=== PATIENT | male | born 1975 | race Caucasian/White ===

== ENCOUNTER 2016-06-26 01:36 | Observation (INO) | payer MEDICAID, OTHER ==
[2016-06-26] VITALS (7 sets, daily range): BP systolic 125–169; BP diastolic 77–99; PULSE 68–92; RESP 16–18; TEMP 97.5–98.2; O2SAT 95–98
[~2016-06-26] VITALS: Ht 170.2 cm; Wt 80.0 kg
--- NOTE | 2016-06-26 01:55 | PD ---
HPI Chief Complaint: Oral / Dental Pain or Problem Time Seen by Provider: 01:45 Travel History International Travel<30 days: No Contact w/Intl Traveler<30days: No Traveled to known affect area: No History of Present Illness HPI The patient is a 40 year old male who presents to the [facility] emergency department with a history of dental pain that began on of this past week approximately 4-5 days ago. The patient reports that he has had problems with his teeth in the past. He last saw a dentist approximately 15 years ago. He reports the pain is in the left lower jaw and one of the posterior teeth. He reports that he's had increasing difficulty opening his mouth since the onset of the pain. The patient went to [facility] for evaluation and was noted to have trismus. The patient was noted on CT scan of the maxillofacial area to have a periapical abscess with surrounding myositis. The patient was accepted in transfer to this facility by the maxillofacial surgeon, Dr. Sutton, and the hospitalist, Dr. Garcia. The patient reports that he did have a low- grade fever earlier today. He denies having any vomiting or diarrhea. He reports that he feels like he lost weight over the last week as he has not been able to eat well due to the pain and difficulty opening his mouth. The patient denies any recent cough, congestion, neck pain, chest pain, shortness of breath , abdominal pain, vomiting, diarrhea, urinary symptoms, or neurologic symptoms. [facility] Past Medical History Narrative Medical The patient's past medical history is significant for having kidney stones. Kidney Stones: Yes Tetanus Vaccination: Unknown Influenza Vaccination: No Past Surgical History Narrative Surgical The patient's past surgical history is significant for a lithotripsy. Valve Replacement: Yes (LITHOTRIPSY) Social History Alcohol Use: No Tobacco Use: Yes (1 PPD) Substance Use: Yes (marijuana occasionally) Allergies-Medications (Allergen,Severity, Reaction): Coded Allergies: No Known Allergies (Unverified , 06/26/16) Reported Meds & Prescriptions Reported Meds & Active Scripts Active No Active Prescriptions or Reported Medications Review of Systems General / Constitutional: Positive: Fever Eyes: No: Visual changes HENT: Positive: Dental Difficulties, No: Headaches Cardiovascular: No: Chest Pain or Discomfort Respiratory: No: Shortness of Breath Gastrointestinal: No: Abdominal Pain Genitourinary: No: Dysuria Musculoskeletal: No: Pain Skin: No Rash Neurologic: No: Weakness Psychiatric: No: Depression Endocrine: No: Polydipsia Hematologic/Lymphatic: No: Easy Bruising Physical Exam Narrative General: The patient is a well-developed well-nourished male in no acute distress. Head and Neck exam: Head is normocephalic atraumatic. Eyes: Pupils are equal round and reactive to light. Nose: Midline septum with pink mucous membranes Mouth: The patient is only able to open his mouth approximately 1-1/2 cm. The patient's dentition in the area of interest along the left side of his mouth on the lower jaw there is noted to have some areas of decay. The patient has surrounding gingival erythema, however no significant edema or aamir abscess formation. Moist mucus membranes. Posterior oropharynx is not erythematous. No tonsillar hypertrophy. Uvula midline. Airway patent. The patient has tenderness on palpation along the left side of the mandible. Neck: No palpable lymphadenopathy. No nuchal rigidity. No thyromegaly. Cardiovascular: Regular rate and rhythm without murmurs, gallops, or rubs. Lungs: Clear to auscultation bilaterally. No wheezes, rhonchi, or rales. Abdomen: Soft, without tenderness to palpation in all 4 quadrants of the abdomen. No guarding, rebound, or rigidity. Normal bowel sounds are audible. Extremities: No clubbing, cyanosis, or edema. Back: No spinous process tenderness to palpation. No costovertebral angle tenderness to palpation. Neurologic Exam: Grossly nonfocal. Skin Exam: No rash noted. Intact skin that is warm and dry. Data Data Last Documented VS Vital Signs Date Time Temp Pulse Resp B/P Pulse Ox O2 Delivery O2 Flow Rate FiO2 06/26/16 01:39 97.9 92 16 169/99 98 Orders Sodium Chlor 0.9% 1000 Ml Inj (Ns 1000 M (06/26/16 02:00) Place In Observation (06/26/16 ) Vital Signs (Adult) Q4H (06/26/16 02:21) Activity Oob Ad Julee (06/26/16 02:21) Diet Npo (06/26/16 Breakfast) Sodium Chlor 0.9% 1000 Ml Inj (Ns 1000 M (06/26/16 02:21) Sodium Chloride 0.9% Flush (Ns Flush) (06/26/16 02:30) Sodium Chloride 0.9% Flush (Ns Flush) (06/26/16 09:00) Scd Bilateral/Knee High JIN.BID (06/26/16 02:21) Naloxone Inj (Narcan Inj) (06/26/16 02:30) Clindamycin Inj (Cleocin Inj) (06/26/16 03:00) Dexamethasone Inj (Decadron Inj) (06/26/16 06:00) Pantoprazole Inj (Protonix Inj) (06/26/16 02:30) Consult Ent (06/26/16 ) Morphine Inj (Morphine Inj) (06/26/16 02:30) Admit Order (Ed Use Only) (06/26/16 02:30) Consult Oral, Facial Surgery (06/26/16 ) MDM Medical Decision Making Medical Screen Exam Complete: Yes Emergency Medical Condition: Yes Medical Record Reviewed: Yes Differential Diagnosis Dentalgia, versus dental abscess, versus myositis Narrative Course During the course of the patients emergency department visit, the patients history, examination, and differential diagnosis were reviewed with the patient. The patient had IV access obtained and blood work sent from the [facility]. The patient's laboratory studies and imaging studies were reviewed. According to their records the patient was given clindamycin 900 mg IV, Decadron, morphine and Zofran for pain. The patient had a white count at that facility of 11, hemoglobin 14.6, platelets 232 with a neutrophil count of 72.2, basic metabolic profile showed a sodium of 139, potassium 4.3, chloride 102, CO2 25, BUN 14, creatinine 0.98, glucose 103. The patient's CT scan of the maxillofacial area revealed left medial pterygoid muscle that is enlarged and hypoattenuating like reflecting myositis. The source is likely a periapical abscess involving the left lower third molar where there is a large periapical lucency which is dehisced sent along the lingual surface of the mandible. No definite ring enhancing fluid collection suggesting intramuscular subperiostial abscess in this location. A call has been placed out to the hospitalist accepted the patient in transfer. The patients results were discussed with the patient, including the plan of care. I explained that further testing and/ or monitoring is indicated based on the patients history, examination, and/ or laboratory findings. Therefore, I recommended admission for additional evaluation. The patient expressed understanding and was agreeable with this plan. The patient was admitted to the hospital in stable condition and sent to a bed under the care of the [facility] with a consultation to the maxillofacial surgeon, Dr. Sutton. Physician Communication Physician Communication The patient's case was discussed with Dr. Garcia who did agree to admit the patient for further evaluation and treatment at this time. Diagnosis Primary Impression: Periapical abscess with facial involvement Additional Impression: Myositis Qualified Code: M60.009 - Infective myositis, unspecified site Admitting Information Admitting Physician Requests: Admit Scripts No Active Prescriptions or Reported Meds Carolyn Chaparro MD Jun 26, 2016 01:55
[2016-06-26] MEDS ORDERED: SODIUM CHLOR 0.9% 1000 ML INJ 1,000 ML IV SCH ×2 (02:00→02:21)
[2016-06-26] MEDS ORDERED: NALOXONE HCL 0.4 MG/ML AMP IV PRN ×2 (02:30→08:45)
[2016-06-26] MEDS ORDERED: SODIUM CHLORIDE 0.9% FLUSH 5 ML FLUSH FLUSH PRN ×2 (02:30→08:45)
[2016-06-26] MEDS ORDERED: MORPHINE SULFATE 4 MG/ML INJ IV PUSH PRN (02:30)
[2016-06-26] MEDS ORDERED: PANTOPRAZOLE SODIUM 40 MG VIAL IV PUSH SCH (02:30)
[2016-06-26] MEDS ORDERED: CLINDAMYCIN INJ 900 MG in SODIUM CHLORIDE 0.9% INJ 100 ML IV SCH (03:00)
[2016-06-26] MEDS ORDERED: HYDROmorphone HCL PF 1 MG/ML VIAL IV PUSH PRN (04:30)
[2016-06-26] MEDS: DEXAMETHASONE SOD PHOS 4 MG/ML VIAL IV PUSH SCH ×4 (06:43→23:21)
--- NOTE | 2016-06-26 08:36 | MB ---
cc: BRIAN SUTTON DMD DATE OF CONSULTATION June 26, 2016 REASON FOR CONSULTATION Tooth pain/limited opening. HISTORY OF PRESENT ILLNESS This is a 40-year-old male who for the last 4-5 days reports pain in the lower left wisdom tooth. He reports that it is somewhat moving. He is having difficulty completely opening his mouth. It is painful. I got a call from [facility] ER this morning. They indicated to me the patient's condition and I accepted for transfer. I have seen and examined this patient this morning. He is alert, awake and oriented x 3, in no acute distress. He denies any fever, chills, nausea or vomiting, any shortness of breath, any difficulty breathing or any difficulty swallowing. Reports when he tries to open his mouth more than what he is able to eat, he has some pain. PAST MEDICAL HISTORY Reports a history of kidney stones. MEDICATIONS Denied. ALLERGIES Denied. SOCIAL HISTORY Reports smoking cigarettes one-pack per day but tried to quit. Denies any alcohol. Occasional marijuana use. EXAMINATION Head and Neck: No gross facial edema/neck edema. No tenderness to palpation of the neck. Trachea is at midline. Intraorally, he has limited opening. I am unable to put a tongue depressor on the site which is approximately 18 mm. There is no elevation of floor of the mouth or the tongue. There is no deviation of the uvula. No gross intraoral edema that is noted. Tooth #17 I could see posteriorly; it is angled posterior left mandible mesioangular but he has got some mobility on that. He also has a broken area of molar that is anterior to that, although it is covered with the gums. The patient believes the tooth was broken off. The roots is still there. Vital Signs: Temperature is 98.2, pulse is 88, respiration rate 16, blood pressure 130/86 with oxygen saturation of 96%. LABS FROM [facility] White count of 11, H&H of 14.6, platelets of 232. ASSESSMENT AND PLAN This is a 40-year-old male with a longstanding history of not seeing a dentist. He now presents to the ER with limited opening secondary to pain. Tooth #17 is mobile. There is discomfort to palpation of tooth #17. Also there appears to be broken tooth anterior to that. Unable to open up the CT scan of the facial bones from [facility]. I will take the disc to my office to evaluate that. If I am not able to, get a repeat CT scan. We can also at this point plan to continue the antibiotics, steroids. We will also consider having the patient admitted overnight and discharge the patient tomorrow for extraction of the tooth. ADDENDUM I have reviewed the CT scan here at the hospital, we are able to find a computer that opens it up. It shows generalized periodontally involved periapical lucency that is noted. Especially on the left side the tooth number 17 with periapical lucency with a little cracked on the bone on the lingual of the 17th side. Clinically also it did note that the patient also has generally periodontally teeth mobility especially the one in the lower anterior. So at this point we will plan IV antibiotics, steroids and then we will have the patient discharged to the office tomorrow for extraction of tooth number 17 or any other teeth at that region. Did professor of counseling the patient on the importance of following with a dentist/mba intern. He has got generalized gingival chroni periodontitis, decayed teeth, poor dentition. Brian Sutton, SHARONDA SPOUTING INSTALLER/SSB /7:52 AM /10:11 AM TG
[2016-06-26] MEDS: SODIUM CHLORIDE 0.9% FLUSH 5 ML FLUSH FLUSH SCH ×2 (08:44→19:27)
[2016-06-26] MEDS ORDERED: ZOLPIDEM TARTRATE 5 MG TAB PO PRN (08:45)
[2016-06-26] MEDS ORDERED: ACETAMINOPHEN 325 MG TAB PO PRN ×2 (08:45)
[2016-06-26] MEDS ORDERED: ACETAMINOPHEN/HYDROcodone 325 MG/7.5 MG TAB PO PRN (08:45)
[2016-06-26] MEDS ORDERED: MAGNESIUM HYDROXIDE SUSP 30 ML CUP PO PRN (08:45)
[2016-06-26] MEDS ORDERED: ONDANSETRON HCL 4 MG/2 ML VIAL IVP PRN (08:45)
[2016-06-26] MEDS ORDERED: ACETAMINOPHEN/HYDROcodone 325 MG/5 MG TAB PO PRN (08:45)
--- NOTE | 2016-06-26 08:51 | HHI.HP ---
[facility] Shelby Whitehead MD Admission Diagnosis Periapical abscess, myositis Diagnoses: (1) Periapical abscess with facial involvement Diagnosis: Principal (2) Periodontitis Diagnosis: Principal Chief Complaint: jaw and teeth pain Travel History International Travel<30 Days: No Contact w/Intl Traveler <30 Da: No Traveled to Known Affected Are: No History of Present Illness 40-year-old white male with a past medical history was transferred from [facility] emergency room upon acceptance from the oral facial maxillary surgeon Dr. Sutton due to possible per periapical abscess for surgical evaluation. Patient states that 6 days ago as she he was chewing Doritos chips , he developed significant left lower jaw pain. Over the past 24-48 hours he's also developed low-grade fevers. He states that he has had poor dental care due to no payor source for dentist visits and stated that he lost some premolar tooth in the left lower area due to his wisdom tooth. He reports that he is still able to swallow soft solids foods. He does have limited efforts and opening his jaw due to pain. He denies any drooling. He has not had any chills or any other trauma to the area. Review of Systems Constitutional: COMPLAINS OF: Fever, DENIES: Fatigue, Chills, Change in appetite Endocrine: DENIES: Heat/cold intolerance Eyes: DENIES: Blurred vision, Eye pain, Vision loss Ears, nose, mouth, throat: COMPLAINS OF: Toothache, DENIES: Hearing loss, Nasal discharge, Throat pain, Ear Pain, Sinus Pain Respiratory: DENIES: Cough, Shortness of breath Cardiovascular: DENIES: Chest pain, Palpitations, Dyspnea on Exertion, Lower Extremity Edema Gastrointestinal: DENIES: Abdominal pain, Black stools, Bloody stools, Constipation, Diarrhea, Nausea, Vomiting Musculoskeletal: DENIES: Joint pain, Muscle aches, Stiffness Integumentary: DENIES: Rash Hematologic/lymphatic: DENIES: Bruising, Lymphadenopathy Immunologic/allergic: DENIES: Eczema Neurologic: DENIES: Headache, Localized weakness, Paresthesias Psychiatric: DENIES: Anxiety, Depression, Suicidal Ideation Past Family Social History Past Medical History Kidney stones Past Surgical History Lithotripsy Reported Medications None Allergies: Coded Allergies: No Known Allergies (Unverified , 06/26/16) Family History Father had [facility] previously at 57 Mother had uterine cancer Social History Uses marijuana occasionally, smokes 1 pack of cigarettes daily. Does not drink alcohol Physical Exam Vital Signs Vital Signs Date Time Temp Pulse Resp B/P Pulse Ox O2 Delivery O2 Flow Rate FiO2 06/26/16 07:27 98.2 88 16 138/86 96 06/26/16 07:23 16 06/26/16 04:30 88 18 150/90 97 Room Air 06/26/16 01:39 97.9 92 16 169/99 98 Physical Exam GENERAL: This is a well-nourished, well-developed patient, in no apparent distress. SKIN: No rashes, ecchymoses or lesions. Cool and dry. HEAD: Atraumatic. Normocephalic. No temporal or scalp tenderness. EYES: Pupils equal round and reactive. Extraocular motions intact. No scleral icterus. No injection or drainage. ENT: Nose without bleeding, purulent drainage or septal hematoma. Throat without erythema, tonsillar hypertrophy or exudate. Uvula midline. Airway patent. Patient was able to open his jaw with visualization of left lower absence of premolars. There was redness and swelling over the left lower gumline. No significant drainage seen. Pain upon left lower gumline with stimuli. NECK: Trachea midline. No JVD or lymphadenopathy. Supple, nontender, no meningeal signs. CARDIOVASCULAR: Regular rate and rhythm without murmurs, gallops, or rubs. RESPIRATORY: Clear to auscultation. Breath sounds equal bilaterally. No wheezes , rales, or rhonchi. GASTROINTESTINAL: Abdomen soft, non-tender, nondistended. Normoactive bowel sounds MUSCULOSKELETAL: Extremities without clubbing, cyanosis, or edema. No joint tenderness, effusion, or edema noted. No calf tenderness. Negative Homans sign bilaterally. NEUROLOGICAL: Awake and alert to person place time and situation. Cranial nerves II through XII intact. Motor and sensory grossly within normal limits. Five out of 5 muscle strength in all muscle groups. Normal speech. Laboratory WBC11,000, hemoglobin 14.6, Imaging CT performed at [facility] revealed left medial pterygoid muscle is enlarged and hypoattenuating likely reflecting myositis. The source is likely. Apical abscess involving the left lower third molar where there is a large. Apical lucency which is dehiscent along the lingual surface of the mandible. No definite rim enhancing fluid collection suggest intramuscular or subcutaneous per stay all abscess in this location. However evaluation is limited in this location CN II quantum multiple and streak artifact. Inflammatory changes involving the adjacent left mandible and parapharyngeal spaces. Findings consistent with apical periodontitis involving multiple upper and lower teeth with associated reactive osteitis involving adjacent maxilla and mandible. Assessment and Plan Problem List: (1) Periapical abscess with facial involvement ICD Code: K04.7 Status: Acute (2) Periodontitis ICD Code: K05.30 Status: Acute Assessment and Plan 1. Periapical abscess with periodontitis- patient was seen and evaluated by orofacial maxillary surgeon Dr. Sutton who recommended continue conservative treatment with IV fluid hydration, IV antibiotics and steroids Decadron. If symptoms does clinically improve, he should be discharged home on oral antibiotics with outpatient follow-up for further surgical evaluation such as with some tooth removal with him in his office. We'll continue to monitor patient clinically. Restart diet and monitor intake. 2. DVT prophylaxisNo mechanical or pharmaceutical VTE prophalaxis administered due to patient's low risk assessment of VTE. Encouraged ambulation. Tosin Isidro MD Jun 26, 2016 08:51
[2016-06-26] MEDS ORDERED: SODIUM CHLORIDE 0.9% FLUSH 5 ML FLUSH FLUSH SCH (09:00)
[2016-06-26] MEDS: AMPICILLIN-SULBACTAM INJ 3 GM in SODIUM CHLORIDE 0.9% INJ 100 ML IV SCH ×3 (10:03→19:27)
--- NOTE | 2016-06-26 17:18 | HHI.PR ---
Subjective Remarks pt seen and examined this evening AAOx3 NAD, ate cheeseburger today, coffee this evening denies f/c/n/v/sob/difficulty swallowing. tolerating po well reports feeling better Objective Vital Signs Date Time Temp Pulse Resp B/P Pulse Ox O2 Delivery O2 Flow Rate FiO2 06/26/16 16:45 97.8 81 17 130/77 98 Room Air 06/26/16 13:46 97.8 81 17 135/80 98 06/26/16 13:00 17 06/26/16 11:59 68 18 125/82 95 Room Air 06/26/16 07:27 98.2 88 16 138/86 96 06/26/16 07:23 16 06/26/16 04:30 88 18 150/90 97 Room Air 06/26/16 01:39 97.9 92 16 169/99 98 Objective Remarks no neck edema trach midline dmitriy opening increased, but not full mouth opening no elevation fom or tongue #17 mobility,, possible remaining roots molar left mandible no intraoral/facial edema Assessment and Plan Assessment and Plan s/p having tooth pain left post wisdom teeth #17, possible retained root left post kirill molar improvement since this am will reeval tomorrow am if better - plan to d/c to my office to tooth extraction if not better to main OR tomorrow pm d/w pt adn Omar Balderrama DMD Jun 26, 2016 17:18
[2016-06-27 00:06] VITALS: BP 152/82; PULSE 74; RESP 20; TEMP 98.1; O2SAT 96
[2016-06-27] MEDS: AMPICILLIN-SULBACTAM INJ 3 GM in SODIUM CHLORIDE 0.9% INJ 100 ML IV SCH ×4 (03:44→21:00)
[2016-06-27 04:31] VITALS: BP 113/60; PULSE 77; RESP 20; TEMP 97.6; O2SAT 95
[2016-06-27] MEDS: DEXAMETHASONE SOD PHOS 4 MG/ML VIAL IV PUSH SCH ×3 (05:32→18:00)
--- NOTE | 2016-06-27 07:32 | HHI.PR ---
Subjective Remarks pt seen and examined this morning AAOx3 NAD, reports discharge fluid come out in mouth when he pushed on side of mouth denies f/c/n/v/sob/difficulty swallowing. tolerating po well reports feeling better Objective Vital Signs Date Time Temp Pulse Resp B/P Pulse Ox O2 Delivery O2 Flow Rate FiO2 06/27/16 04:31 97.6 77 20 113/60 95 06/27/16 00:06 98.1 74 20 152/82 96 06/26/16 18:22 97.5 68 16 147/88 97 06/26/16 16:45 97.8 81 17 130/77 98 Room Air 06/26/16 13:46 97.8 81 17 135/80 98 06/26/16 13:00 17 06/26/16 11:59 68 18 125/82 95 Room Air Objective Remarks no neck edema trach midline mouth opening increased, but not full mouth opening no elevation fom or tongue #17 mobility,, possible remaining roots molar left mandible no intraoral/facial edema no discharge noted now Assessment and Plan Assessment and Plan s/p having tooth pain left post wisdom teeth #17, possible retained root left post kirill molar unable to come to office today for tooth extraction I&D due to not being able to get a ride to main OR this evening for I&D and ext tooth #17 benefits/risks reviewed, all questions/concerns answered keep NPO Omar Sutton DMD Jun 27, 2016 07:32
[2016-06-27 07:44] VITALS: BP 129/83; PULSE 78; RESP 14; TEMP 96.1; O2SAT 98
[2016-06-27] MEDS: SODIUM CHLORIDE 0.9% FLUSH 5 ML FLUSH FLUSH SCH ×2 (08:01→19:46)
--- NOTE | 2016-06-27 09:40 | HHI.PR ---
Subjective Remarks Still with pain and facial swelling but better overnight. Wants to proceed with surgery. No other complaints at this time. Objective Vitals Vital Signs Date Time Temp Pulse Resp B/P Pulse Ox O2 Delivery O2 Flow Rate FiO2 06/27/16 07:44 96.1 78 14 129/83 98 06/27/16 04:31 97.6 77 20 113/60 95 06/27/16 00:06 98.1 74 20 152/82 96 06/26/16 18:22 97.5 68 16 147/88 97 06/26/16 16:45 97.8 81 17 130/77 98 Room Air 06/26/16 13:46 97.8 81 17 135/80 98 06/26/16 13:00 17 06/26/16 11:59 68 18 125/82 95 Room Air Objective Remarks GENERAL: This is a well-nourished, well-developed patient, in no apparent distress. HEENT: Mild Left jaw facial swelling CARDIOVASCULAR: Regular rate and rhythm RESPIRATORY: Clear to auscultation. Breath sounds equal bilaterally. No wheezes , rales, or rhonchi. GASTROINTESTINAL: Abdomen soft, non-tender, nondistended. Normal active bowel sounds MUSCULOSKELETAL: Extremities without clubbing, cyanosis, or edema. NEURO: Alert & Oriented x4 to person, place, time, situation. Moves all ext x4 A/P Problem List: (1) Periapical abscess with facial involvement ICD Code: K04.7 Status: Acute (2) Periodontitis ICD Code: K05.30 Status: Acute Assessment and Plan 1. Periapical abscess with periodontitis, continue with IV fluid hydration, IV antibiotics and steroids Dr. Herman Spring will take the patient to the OR at 5 PM today for I&D and extraction of tooth #17 keep patient nothing by mouth today. Complete course of antibiotics upon discharge to home and follow-up with orofacial maxillary surgery. 2. DVT prophylaxisSCDs while in bed. Discharge Planning Discharge patient to home after surgery Condition on discharge: Improved Soft diet as tolerated Ad Julee activity Rx written: Augmentin 875 mg by mouth twice a day, defer pain medication prescription to orofacial maxillary surgeon Follow-up with primary care physician Tosin Isidro MD Jun 27, 2016 09:40
--- NOTE | 2016-06-27 09:41 | HHI.DCPOC ---
Discharge Care Plan Diagnosis: (1) Periapical abscess with facial involvement (2) Periodontitis Your Health Problems Are: Inflammation Goals to Promote Your Health * To prevent worsening of your condition and complications * To maintain your health at the optimal level Directions to Meet Your Goals Take your medications as prescribed Follow your dietary instruction Follow activity as directed Follow-up with orofacial maxillary surgery Keep your appointments as scheduled Take your immunizations and boosters as scheduled If your symptoms worsen call your PCP, if no PCP go to Urgent Care Center or Emergency Room Smoking is Dangerous to Your Health. Avoid second hand smoke Call the 24-hour hour crisis hotline for domestic abuse at Tosin Isidro MD Jun 27, 2016 09:41
[2016-06-27] MEDS ORDERED: AUGM875T PO (09:45)
[2016-06-27] MEDS: LACTATED RINGER'S 1000 ML INJ 1,000 ML IV SCH ×2 (09:49→20:00)
[2016-06-27 11:41] VITALS: BP 140/85; PULSE 85; RESP 18; TEMP 96.5; O2SAT 96
[2016-06-27] MEDS ORDERED: PROPOFOL 200 MG/20 ML AMP IV ONE (12:00)
[2016-06-27 15:54] VITALS: BP 146/88; PULSE 87; RESP 18; TEMP 97.9; O2SAT 98
[2016-06-27] MEDS ORDERED: CHLORHEXIDINE GLUCONATE 0.12% 30 ML CUP ONE (17:52)
[2016-06-27] MEDS ORDERED: LIDOCAINE 2%/EPINEPHrine 1:100,000 30ML MDV ONE (17:53)
[2016-06-27] MEDS ORDERED: MICROFIBRILLAR COLLAGEN HEMOSTAT 1 GM PKT ONE (17:53)
[2016-06-27] MEDS ORDERED: BUPIVACAINE/EPINEPHRINE 0.5% PF 30 ML VIAL ONE (17:53)
--- NOTE | 2016-06-27 19:16 | HHI.PR ---
Immediate Post Op Note Procedure Date: Jun 27, 2016 Pre Op Diagnosis: decayed/periodontally tooth #17 left post mandible abscess/infection secondary to tooth #17 Post Op Diagnosis: same as above Surgeon: Omar Sutton Phlebotomy Supervisor(s): cortney stevenson Procedure: exam under anesthesia extraction of tooth #17 I&D left Post mandible Findings: pus 17 site Complications: none Specimen(s) removed: pus - sent for culture Estimated blood loss: minimal Anesthesia: General, Local (2%lidocaine with 1:100,000 epi 4 cc .05% marcaine with 1:200,000 epi approx 3 cc) Drains: [place] (1/4 inch ebony drain left post mandible) Patient to: PACU Patient Condition: Good Date/Time of Procedure: SEE SURGICAL CARE RECORD Omar Sutton DMD Jun 27, 2016 19:16
[2016-06-27] MEDS ORDERED: MIDAZOLAM HCL 2 MG/2 ML VIAL ONE (19:17)
[2016-06-27] MEDS ORDERED: methylPREDNISolone SOD SUCC 125 MG/2 ML VIAL ONE (19:21)
[2016-06-27] MEDS ORDERED: *MEPERIDINE 25 MG INJ VIAL PERIprocedural Use ONLY ONE (19:22)
[2016-06-27] MEDS: methylPREDNISolone SOD SUCC 125 MG/2 ML VIAL IV SCH (19:30)
[2016-06-27] MEDS ORDERED: *morphine SULFATE 8 MG/ML PERIprocedure ONLY ONE ×2 (19:36→19:48)
[2016-06-27] MEDS ORDERED: *HYDROmorphone PF 1 MG VIAL PERIprocedural Use ONLY ONE (20:11)
[2016-06-28] MEDS: methylPREDNISolone SOD SUCC 125 MG/2 ML VIAL IV SCH (01:30)
[2016-06-28] MEDS ORDERED: methylPREDNISolone ACETATE 80 MG/ML VIAL IM ONE (02:00)
[2016-06-28] MEDS: AMPICILLIN-SULBACTAM INJ 3 GM in SODIUM CHLORIDE 0.9% INJ 100 ML IV SCH ×2 (02:30→08:41)
[2016-06-28 08:00] VITALS: BP 144/90; PULSE 81; RESP 18; TEMP 98.9; O2SAT 97
[2016-06-28] MEDS: SODIUM CHLORIDE 0.9% FLUSH 5 ML FLUSH FLUSH SCH (08:41)
[2016-06-28] MEDS: LACTATED RINGER'S 1000 ML INJ 1,000 ML IV SCH (09:45)
[2016-06-28 11:00] VITALS: BP 150/99; PULSE 94; RESP 18; TEMP 98.1; O2SAT 94
[2016-06-28 12:00] VITALS: BP 147/102; PULSE 78; RESP 18; TEMP 98.9; O2SAT 97
--- NOTE | 2016-06-28 21:49 | MP ---
cc: MIGUELBRIAN DMD (fax copy to Dr. Sutton's office) DATE OF SURGERY 06/27/16 PREOPERATIVE DIAGNOSIS Decayed bit on involved tooth number 17, also left posterior mandible abscess/infection secondary to tooth number 17, POSTOPERATIVE DIAGNOSIS Decayed bit on involved tooth number 17, also left posterior mandible abscess/infection secondary to tooth number 17, PROCEDURE 1. Exam under anesthesia. 2. Extraction of tooth number 17. 3. Incision and drainage of posterior mandible. ANESTHESIA General also 2% lidocaine with 1:100,000 epinephrine approximately 4 mL, also 0.5% Marcaine with 1:200,000 epinephrine approximately [address] Rossana Sutton. CHRONIC CONDITION NURSE Brenton Hua COMPLICATIONS None FINDINGS Pus at the #17 site. SPECIMENS Pus sent for culture. ESTIMATED BLOOD LOSS Minimal DRAINS 1/4" drain on the left posterior mandible. DISPOSITION The patient tolerated the procedure well, extubated and taken to the PACU. INDICATIONS FOR PROCEDURE This is a 40-year-old male who was been having pain on the left posterior mandible tooth number 17 and difficulty opening. This was all secondary to tooth #17 with an infection/abscess region. In order to restore proper form and function, it is necessary that patient undergo the above listed procedure. Benefits, risks indication of the procedure, procedure in detail and the options of no treatment including alternatives were discussed with this patient. Risks are not limited to any postop pain, infection, bleeding, damage to the adjacent teeth, soft tissue, hard tissue, anesthesia complications, numbness, recurrence of infection, all questions and concerns were addressed. Consent is signed in the chart. PROCEDURE IN DETAIL The patient was met perioperatively. All questions and concerns were addressed. Left side of the face was marked. Taken to operating room #8. He was put on the table in supine position. He underwent oral intubation with a glide scope. Eyes were lubed and taped shut. All pressure points were padded. At this time a time-out was taken to identify the patient, side, the procedure, the surgeon. All were in agreement. The patient was prepped with Betadine solution. I went to the sink to scrub and came back to wear the sterile attire. The patient was draped in normal sterile fashion. A bite block was put gently on the right side of the mouth. Back of throat was suctioned. Moistened Ray-Aura was used as a throat pack. 2% lidocaine with 1:100,000 epinephrine was injected left inferior nerve block and left long buccal block. Peridex mouth rinse was given in the mouth. Examination under anesthesia shows tooth #17 severely mobile consistent with the radiographic finding of a radiolucency around tooth #17. There was no elevation of floor of the mouth. There is no elevation of floor of the tongue. There is no deviation of the uvula. No palpable collection noted on the lingual aspect of the inferior border of the mandible region posteriorly. There is generalized poor dentition periodontally involved teeth. There is also periapical radiographically. I did have a discussion with this patient perioperatively the points of following up with a dentist as well as surgeon to have teeth restored or extracted. 15 plate was used to make a little incision lateral hockey stick on tooth number 17, coming straight down to the crest on the tooth number 18 region, the molars region. Periosteal elevator was used to reflect off the flap. Once this was done, tooth #17 was removed with extractor with elevation of forceps. The granulation tissue all curetted out. Extending the region of tooth #18 and 19 in that region, that whole area also had inflammatory granulation tissue that was also curetted. I did not clinically see at this point any remains of any tooth. Note that when I proceeded to extract tooth #17 on the lateral aspect a little pus came out of there. Sent for culture. This is a small minimal amount. I took the periosteal elevator on the lateral aspect of the mandible subperiosteal all the way down to the inferior border of the mandible and then went all the way to the angle of the mandible. No pus noted. Putting up at the neck also, neck is very soft. There is no collection that I could palpate. I took the periosteal elevator went on the lingual aspect of the mandible going region of tooth #[address] down to the 17 region. Again no pus is noted. The area of #17 was nicely curetted and then nicely rinsed with saline solution and Peridex. The site looks clean and healthy. A 1/4" Daniel drain was placed on the lateral aspect of the mandible secured into position using a 2-0 silk suture. Operative site was now closed with 3-0 chromic. Mouth was once again irrigated with saline solution. Back of throat was suctioned. The Ray-Aura was taken out as the throat pack was taken out. The bite block was taken out. The patient tolerated the procedure well. No complications noted. DISCUSSION The patient has longstanding history of not seeing a dentist for at least 15 years. He has generalized periodontal disease, periapical radiolucencies. He is probably going to require full month extraction. I counseled the patient on the importance of following up with a dentist/oral surgeons so that he does not repeat this infection that he gets. Minimize the risk. Brian Sutton DMD RRT/SA /7:13 PM /9:35 PM TG
== END 2016-06-28 12:00 | disposition home or self-care (01) ==
LOC: NEPE 01:36 → NEDA 02:33 → INTOOBSV 02:33 → NEDH 07:26 → NEPFCDU 18:02 → N07B 06-27 23:12 → HPAC 06-27 23:18
PROVIDERS: ADMIT Family Medicine; ATTEND Family Medicine
DX: K04.7 Periapical abscess without sinus (principal); M60.009 Infective myositis, unspecified site; R50.9 Fever, unspecified; Z87.442 Personal history of urinary calculi; F17.210 Nicotine dependence, cigarettes, uncomplicated; F12.10 Cannabis abuse, uncomplicated; K05.30 Chronic periodontitis, unspecified; K02.9 Dental caries, unspecified
CPT/HCPCS: 00170; 41800; 41899; 87015; 87070; 87102; 87116; 87205; 87206; 96360; 99285; C9113; G0378; J0295; J1100; J1170; J2175; J2250; J2270; J2930; J3010; J7030; J7120